=== PATIENT | female | born 1970 | race American Indian/Alaskan Native ===

== ENCOUNTER 2020-01-15 11:42 | Outpatient (CLI) | payer OTHER ==
--- NOTE | 2020-01-15 14:18 | XRay Report ---
AP AND LATERAL VIEWS OF THE LUMBAR SPINE INDICATION / CLINICAL INFORMATION: BACK PAIN. COMPARISON: None available. FINDINGS: BONES/JOINT(S): No acute fracture or subluxation. No significant degenerative changes. SOFT TISSUES: No significant abnormality. ADDITIONAL FINDINGS: None. Signer Name: Dank Song MD Signed: 01/15/2020 2:13 PM Workstation Name: [id number]
--- NOTE | 2020-01-15 14:58 | XRay Report ---
BILATERAL FEET, 2 VIEWS EACH INDICATION / CLINICAL INFORMATION: RIGHT /LEFT FOOT PAIN. COMPARISON: None available. FINDINGS: BONES/JOINT(S): No acute fracture or subluxation. 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 Accessory os peroneum is present bilaterally. SOFT TISSUES: No significant abnormality. ADDITIONAL FINDINGS: None. Signer Name: Dank Song MD Signed: 01/15/2020 2:54 PM Workstation Name: [id number]
== END 2020-01-15 11:43 | disposition home or self-care (01) ==
LOC: XRAY 11:42
PROVIDERS: ATTEND Internal Medicine
DX: M19.072 Primary osteoarthritis, left ankle and foot (principal); M19.071 Primary osteoarthritis, right ankle and foot; M20.12 Hallux valgus (acquired), left foot; M20.11 Hallux valgus (acquired), right foot
CPT/HCPCS: 72100